=== PATIENT | male | born 1975 | race Two or more races ===

== ENCOUNTER 2018-04-09 22:12 | Emergency (ER) | payer OTHER ==
[~2018-04-09] VITALS: Ht 175.3 cm; Wt 79.4 kg
[~2018-04-09 22:12] MED LIST: RYBIX ODT50 MG
[2018-04-10] MEDS ORDERED: KETO10TA2 PO (00:41)
[2018-04-10] MEDS ORDERED: MEDROL8 MG PO (00:41)
== END 2018-04-10 00:35 | disposition home or self-care (01) ==
LOC: ER 22:12
DX: M75.51 Bursitis of right shoulder (principal)

== ENCOUNTER 2018-04-16 07:21 | Outpatient (CLI) | payer OTHER ==
[~2018-04-16 07:21] MED LIST changes: +KETO10TA2 PO; +MEDROL8 MG PO
== END 2018-04-16 07:28 | disposition home or self-care (01) ==
LOC: LAB 07:21
DX: E11.9 Type 2 diabetes mellitus without complications (principal); E78.2 Mixed hyperlipidemia; Z12.11 Encounter for screening for malignant neoplasm of colon

== ENCOUNTER 2018-04-16 08:54 | Outpatient (CLI) | payer OTHER | END 2018-04-16 09:01 | disposition home or self-care (01) | LOC: SONOGRAMA 08:54 → MAMO-SONO 09:45 | DX: M25.511 Pain in right shoulder (principal) ==

== ENCOUNTER 2018-04-23 15:39 | Outpatient (CLI) | payer OTHER | END 2018-04-23 15:54 | disposition home or self-care (01) | LOC: LAB 15:39 | DX: R05 Cough (principal); E11.9 Type 2 diabetes mellitus without complications; E78.2 Mixed hyperlipidemia; Z12.11 Encounter for screening for malignant neoplasm of colon ==

== ENCOUNTER 2018-07-09 08:39 | Outpatient (CLI) | payer OTHER | END 2018-07-09 08:47 | disposition home or self-care (01) | LOC: LAB 08:39 | DX: M26.629 Arthralgia of temporomandibular joint, unspecified side (principal); M25.50 Pain in unspecified joint ==

== ENCOUNTER 2021-12-02 08:27 | Emergency (ER) | payer OTHER ==
[~2021-12-02] VITALS: Ht 175.3 cm; Wt 89.4 kg
== END 2021-12-02 10:42 | disposition home or self-care (01) ==
LOC: ER 08:27
DX: B34.9 Viral infection, unspecified (principal); Z20.822 Contact with and (suspected) exposure to COVID-19; Z88.2 Allergy status to sulfonamides; Z87.891 Personal history of nicotine dependence

== ENCOUNTER 2025-04-23 23:03 | Emergency (ER) | payer OTHER ==
[~2025-04-23] VITALS: Ht 175.3 cm; Wt 93.0 kg
[2025-04-23] MEDS ORDERED: ZESTRIL20 MG (23:14)
== END 2025-04-24 00:24 | disposition home or self-care (01) ==
LOC: ER 23:03
DX: R51.9 Headache, unspecified (principal); R53.81 Other malaise; I10 Essential (primary) hypertension; Z88.2 Allergy status to sulfonamides